=== PATIENT | female | born 2000 | race Caucasian/White ===

== ENCOUNTER 2022-01-23 20:51 | Emergency (ER) | payer SELFPAY ==
[~2022-01-23] VITALS: Ht 157.5 cm; Wt 55.0 kg
[2022-01-23 21:07] VITALS: BP 146/72
[2022-01-23] MEDS ORDERED: SODIUM CHLORIDE 0.9% 1,000 ML IV ONE (21:30)
[2022-01-23] MEDS ORDERED: FAMOTIDINE 20MG/2ML VIAL IV ONE (21:30)
[2022-01-23] MEDS ORDERED: ONDANSETRON HCL 4MG/2ML INJ IV ONE (21:30)
== END 2022-01-23 22:25 | disposition left against medical advice (07) ==
LOC: ER 20:51
DX: F10.129 Alcohol abuse with intoxication, unspecified (principal); F12.10 Cannabis abuse, uncomplicated; Y90.9 Presence of alcohol in blood, level not specified
CPT/HCPCS: 99283; J7030